=== PATIENT | female | born 1985 | race Caucasian/White ===

== ENCOUNTER 2020-08-17 17:44 | Outpatient (CLI) | payer OTHER, SELFPAY ==
--- NOTE | ~2020-08-17 | XR_ITS ---
EXAMINATION: XR chest 2V DATE: 08/17/2020 17:59 INDICATION: Cough. Shortness of breath. TECHNIQUE: Frontal and lateral views of the chest were obtained. COMPARISON: None. FINDINGS: The chest demonstrates clear lungs without pneumonia, pleural effusion, or pneumothorax. Th e heart size is normal. Surgical clips in the right upper quadrant are likely from cholecystectomy. IMPRESSION: 1. No acute cardiopulmonary disease. Reviewed, dictated and finalized at location A.
== END 2020-08-17 17:45 | disposition home or self-care (01) ==
LOC: ANHIMG 17:48
PROVIDERS: PCP Family Medicine; Visit Provider Nurse Practitioner Family
DX: R05 Cough (principal)
CPT/HCPCS: 71046

== ENCOUNTER 2021-11-09 11:47 | Outpatient (CLI) | payer OTHER, SELFPAY ==
[2021-11-09 12:02] LABS: Basophils Absolute Auto 0.1 K/mm3 (0.0-0.1); Basophils Percent Auto 0.7 % (0.2-1.2); Eosinophils Absolute Auto 0.1 K/mm3 (0-0.3); Eosinophils Percent Auto 0.8 % (0-4.4); Hematocrit 40.2 % (37.0-47.0); Hemoglobin 12.7 g/dL (12.0-15.0); Immature Granulocyte Absolute 0.03 K/mm3 (0.00-0.031); Immature Granulocyte Percent A 0.4 % (0-0.5); Lymphocytes Absolute Auto 1.87 K/mm3 (0.9-3.2); Lymphocytes Percent Auto 21.9 % (18.3-44.2); Mean Corpuscular HGB Conc 31.6 g/dl (32-36); Mean Corpuscular Volume 85.5 fl (80-100); Mean Platelet Volume 8.9 fl (7.4-10.4); Monocytes Absolute Auto 0.5 K/mm3 (0.1-0.6); Monocytes Percent Auto 5.5 % (2.6-8.5); Neutrophils Percent Auto 70.7 % (45.5-73.1); Platelet Count Result 319 k/mm3 (150-375); Red Cell Distribution Width 14.6 % (11.5-14.5); White Blood Count 8.5 K/mm3 (4.5-10.0)
[2021-11-09 12:18] LABS: Cholesterol 197 mg/dL (0-200); HDL Direct 41 mg/dL; Triglycerides 90 mg/dL (<150)
[2021-11-09 12:29] LABS: LDL Cholesterol Direct 121 mg/dL
[2021-11-09 12:48] LABS: Thyroid Stimulating Hormone 0.924 uIU/mL (0.465-4.680)
[2021-11-09 13:20] LABS: Free T4 Free Thyroxine 1.07 ng/mL (0.78-2.19); Vitamin D 25 Hydroxy 40.8 ng/mL
== END 2021-11-09 11:48 | disposition home or self-care (01) ==
LOC: ANHLAB 11:48
PROVIDERS: PCP Family Medicine; Referring Provider Obstetrics & Gynecology; Visit Provider Nurse Practitioner Family
DX: N85.2 Hypertrophy of uterus (principal); R53.83 Other fatigue; Z13.29 Encounter for screening for other suspected endocrine disorder; E55.9 Vitamin D deficiency, unspecified; Z13.220 Encounter for screening for lipoid disorders; Z01.818 Encounter for other preprocedural examination
CPT/HCPCS: 36415; 80061; 82306; 84439; 84443; 85025; 86850; 86900; 86901

== ENCOUNTER 2021-11-12 00:23 | Day surgery (SDC) | payer OTHER, SELFPAY ==
[2021-11-08 16:28] VITALS: BMI 42.3
--- NOTE | 2021-11-08 16:47 | PC.NURSE ---
Report to the Outpatient Waiting Room, entrance under the green pavilion located off [facility], at time 0730 on date _11/12/21. OR Time: 0930___. Time changes happen often and if your time is changed the preop area will call you the afternoon before. - You and your visitor will be asked to self-screen and do not enter if you have any COVID symptoms. - Only one visitor and NO children visitors are allowed at this time. - The patient visitor is requested to leave or wait in car when not with patient due to restrictions. - A mask is required within the hospital. Patients may have clear liquids (water, carbonated beverages, clear teas, apple juice) until 3 hours prior to surgery with a maximum of 20 ounces. - No food from midnight until time of surgery - Infants may have breast milk until 4 hours before surgery, infant formula 6 hours prior to surgery. - Children will be allowed to drink immediately following surgery. If applicable, please bring a bottle or sippy cup to assist with drinking. Juice, water, soda, and popsicles are readily available. For infants on formula, please bring formula the day of surgery. Pacifiers are allowed. Take the following medications with a SIP of water the morning of surgery: escitalopram Medications to discontinue per physician _multivitamin____ Date to take last dose_11/09/21 Please no make-up, nail italian, hairspray, perfume, deodorant, or body powder the day of surgery. No jewelry (including any body piercings) or valuables the day of surgery, leave them at home. Please take a shower or bath the night before, or the morning of, surgery with an antibacterial soap. Wear comfortable, loose fitting clothing. Children are encouraged to wear pajamas. - Jewelry must be removed prior to entering the operating room. Rings and piercings that are not removed may be cut off. - The hospital will not accept responsibility for valuables. - Please leave all valuables, including medications, at home the day of surgery. If you are going home after surgery, a licensed oil truck driver must drive you home. - NO public transportation without another adult. - We recommend that an adult stay with you for 24 hours following discharge. - We also recommend that you do not drive, make important decision, drink alcoholic beverages, or take any drugs that were not prescribed by your health care provider for at least 24 hours after your discharge time. For Pediatric surgeries, we recommend two adults accompany the child home (only one inside the building at this time). Follow any additional instructions given to you from your surgeon. If you or anyone in your household have experienced Covid symptoms in the past week, please notify your surgeon or the nurse liaison at the phone number below for possible testing. Telephone instructions given to Mandy Marin and asked if any additional questions and then verbalized understanding. Patient advised to call surgeon office or pre surgery nurse liaison [phone] if any additional questions.
--- NOTE | 2021-11-09 12:21 | PM.IMHP ---
H&P: HPI History of Present Illness Date/Time: 11/09/21 12:21 Chief Complaint: Enlarged uterus/pelvic pain/uterine fibroids/bleeding refractory to medical therapy Narrative: This is a 35-year-old multiparous patient admitted for robotic hysterectomy and bilateral salpingectomy secondary to enlarged uterus bleeding pelvic pain and discomfort. She has an ultrasound proving fibroids it is retroverted and at the mechanical issue. She understands this will make her permanently infertile. Risks and benefits of the procedure reviewed including but not exclusive of , aspiration pneumonia, bleeding, transfusion, perforation injury to bowel, bladder, ureters, or other internal organs with need for open laparotomy. She received the ACOG handout entitled hysterectomy as well as advanced the handout. She had all questions answered and asked to proceed PMFSH Past Medical History Medical History Acute pharyngitis, unspecified (10/02/18) Adult BMI 39.0-39.9 kg/sq m BMI 38.0-38.9,adult delivery delivered Dietary counseling and surveillance (10/02/18) Routine physical examination Screening for lipid disorders Uterine polyp Vitamin D deficiency Surgical History Surgical History H/O dilation and curettage History of cholecystectomy Family History Family History Father Hypertension Grandparent Cerebrovascular accident Mother Hyperlipidemia Hypoglycemia Sibling Tobacco abuse Other Diabetes mellitus Family history of malignant neoplasm of breast Family history of type 2 diabetes mellitus Social History Social History Smoking status: Never smoker Second hand tobacco smoke exposure: Yes Alcohol intake: never Substance use: never Substance use type: does not use Additional living arrangements comments: AND KIDS Additional occupation/education comments: [employer] Gender identity (if verbalized by the patient): Female Sexual Orientation (if Verbalized by the Patient): Straight or Heterosexual Spiritual care concerns: No Agree to blood products: Yes Meds Home Medications and Allergies Home Medications Medication Instructions Recorded Confirmed Type escitalopram oxalate 10 mg tablet 10 mg PO DAILY #30 tabs 10/15/21 11/08/21 Rx (Lexapro) multivit with minerals-iron 18 1 tablet PO DAILY 11/08/21 11/08/21 History mg-folic ac 400 mcg-vit K 25 mcg tablet (Adults Multivitamin) Allergies Allergy/AdvReac Type Severity Reaction Status Date / Time No Known Allergies Allergy Verified 11/09/21 09:31 Exam Const: General: cooperative, healthy appearing and comfortable Nutritional Appearance: average body habitus Orientation/consciousness: oriented to person, oriented to place and oriented to time HENMT: Head: normal to inspection Chest: Chest palpation & inspection: normal inspection of the chest Resp: Effort & Inspection: normal respiratory effort Cardio: Rate: regular rate Rhythm: regular rhythm Heart sounds: S1 normal heart sound present and S2 normal heart sound present GI: Inspection: normal to inspection : External Female Exam: normal external appearance Speculum Exam - Vagina: normal appearance of the vagina and vaginal bleeding Speculum Exam - Cervix: normal appearance of the cervix Bimanual exam- vagina & uterus: enlarged, Uterus displaced retroverted and Uterine tenderness Bimanual Exam- Adnexa, other: normal adnexae Assessment and Plan Assessment and plan (1) Enlarged uterus: Code(s): N85.2 - Hypertrophy of uterus Status: Acute (2) Pelvic pain: Code(s): R10.2 - Pelvic and perineal pain Status: Acute (3) Uterine fibroid: Code(s): D25.9 - Leiomyoma of uterus, unspecified
[2021-11-12] VITALS (10 sets, daily range): BP systolic 91–140; BP diastolic 40–85; PULSE 64–111; RESP 14–25; TEMP 36.2–37.1; O2SAT 93–100; BMI 41.1
--- NOTE | 2021-11-12 06:44 | WPDHPUPDATE1 ---
History and Physical Update Update Date/Time: 11/12/21 06:44 History and Physical has been reviewed, including an updated exam of the patient. There are NO changes in the patient's condition. Risks, benefits, and alternatives have been discussed and questions answered. Patient agrees to proceed with procedure.
[2021-11-12] MEDS: LACTATED RINGERS 1,000 ML 30 ML IV CONT ×2 (08:34→11:53)
[2021-11-12] MEDS: ACETAMINOPHEN 500 MG TABLET 1000 MG PO (08:35)
[2021-11-12] MEDS: KETOROLAC 15 MG/ML VIAL (*BKC) IV PUSH (08:36)
--- NOTE | 2021-11-12 08:54 | WPDANESEPPF ---
Anes - Initial Pre Proc Eval Procedure: Operation Date: 11/12/21 09:30 Proposed Procedures p Robotic Assisted Total Vaginal Hysterectomy with Bilateral Salpingectomy - Reji Valenzuela MD Date/Time: 11/12/21 08:54 Surgeon: Reji Valenzuela MD Pre Op Diagnosis: enlarged uterus, heavy bleeding, fibroids, pain Patient Data Age: 35 Gender: F Height: 1.57 m Weight: 102.1 kg Last Vital Signs Temp 37.1 C 11/12/21 07:50 Pulse 83 11/12/21 07:50 Resp 14 11/12/21 07:50 BP 133/80 11/12/21 07:50 Pulse Ox 99 11/12/21 07:50 O2 Del Method Room Air 11/12/21 07:50 Allergies Allergy/AdvReac Type Severity Reaction Status Date / Time No Known Allergies Allergy Verified 11/12/21 07:55 Home Medications Medication Instructions Recorded Confirmed Type escitalopram oxalate 10 mg tablet 10 mg PO DAILY #30 tabs 10/15/21 11/08/21 Rx (Lexapro) multivit with minerals-iron 18 1 tablet PO DAILY 11/08/21 11/12/21 History mg-folic ac 400 mcg-vit K 25 mcg tablet (Adults Multivitamin) hydrocodone 5 mg-acetaminophen 325 1 tablet PO Q4H PRN pain #30 tabs 11/12/21 Rx mg tablet Patient hx anesthesia problems: none Family hx anesthesia problems: none Results Review: All pre-operative results and documents have been reviewed as part of the pre-operative evaluation. [facility] Past Medical History Medical History Acute pharyngitis, unspecified (10/02/18) Adult BMI 39.0-39.9 kg/sq m BMI 38.0-38.9,adult delivery delivered Dietary counseling and surveillance (10/02/18) Routine physical examination Screening for lipid disorders Uterine polyp Vitamin D deficiency Surgical History Surgical History H/O dilation and curettage History of cholecystectomy Family History Family History Father Hypertension Grandparent Cerebrovascular accident Mother Hyperlipidemia Hypoglycemia Sibling Tobacco abuse Other Diabetes mellitus Family history of malignant neoplasm of breast Family history of type 2 diabetes mellitus Social History Social History Smoking status: Never smoker Second hand tobacco smoke exposure: Yes Alcohol intake: never Substance use: never Substance use type: does not use Living arrangements: with family Additional living arrangements comments: AND KIDS Additional occupation/education comments: [employer] Gender identity (if verbalized by the patient): Female Sexual Orientation (if Verbalized by the Patient): Straight or Heterosexual Spiritual care concerns: No Agree to blood products: Yes Anes - Eval Final PreProcedure Day of Procedure 11/12/21 08:54 Patient weight: morbidly obese Heart: regular rate and rhythm Lungs: clear to auscultation Airway: Mallampati scale class 1 Neurological: alert and oriented Last oral intake: >/= 8 hours ASA classification: III Emergent: no Anesthetic plan: proceed Anesthesia type and monitoring: general ETT and standard monitoring Results Review: All pre-operative results and documents have been reviewed as part of the pre-operative evaluation. Informed Consent: The patient's anesthetic plan and its attendant risks and benefits were discussed with the patient/family/POA. Questions were solicited and answers provided to the satisfaction of the patient/family/POA.
[2021-11-12] MEDS: ceFAZolin 2 GM/D5W 50 ML 2 GM/50 ML BAG IVPB (09:12)
--- NOTE | 2021-11-12 11:36 | P.OP_ITS ---
Procedure Note - Detailed Date of Procedure 11/12/21 Pre-op Diagnosis enlarged uterus, heavy bleeding, fibroids, pain Post-op Diagnosis Same Procedure Performed Robotic total vaginal hysterectomy and bilateral salpingectomy Surgeon Reji Valenzuela MD Anesthesia General Indications She is a 35-year-old female with enlarged uterus pelvic pain and bleeding refractory medical therapy Findings Enlarged retroverted uterus normal-appearing ovaries and tubes Description of Procedure Patient was prepped draped in the normal sterile fashion placed in dorsal lithotomy position. Under excellent general trach anesthesia weighted speculum placed posterior fornix vagina. Anterior lip of the cervix grasped with a single-tooth tenaculum and the uterus sounded to 10cm. Serial dilatation with fragmented dilators performed followed by passes the 10. ANDREINA and 3. Cold cup. A 16 Uzbek catheter was placed in bladder and bladder urine. The weighted speculum was removed and single-tooth were removed. The gloves were changed A supraumbilical incision made Veress needle passed in the abdomen. Abdomen filled with CO2 gas [id number]. The 5mm trocar advanced in the abdomen downside visualized were seen. Patient placed in Trendelenburg and left and right lateral quadrant incision made 8mm trocars were then placed in the abdomen under direct visualization assuring no injury. Right upper quadrant incision made the 8mm trocar advanced under direct visualization assuring no injury. The robot was docked. Attention was turned to the console. Uterus noted be markedly markedly retroverted the bladder was markedly adherent anteriorly to the uterus and cervix anteriorly. The left round ligament grasped, burned, cut. Anteriorly a bladder flap was formed by slowly layer by layer sharply dissecting the mack toneum and reflecting the bladder caudally until the lateral until it could be brought down across the cervix and uterus to the opposite round ligament was clamped, burned, cut. Next the fallopian tube was sharply dissected away from the ovarian complex and left attached to its uterine origin a miranda. This was completed on the opposite side with the right fallopian tube. The left utero- ovarian ligament was skeletonized clamped, burned, cut brought to the level of previously cut round ligament conserving the left ovary. Conserving the right ovary, the utero-ovarian ligament was clamped, burned, cut brought to the level of previously cut round ligament. The cardinal broad ligaments on left were serially skeletonized clamping burning cutting and bringing this down until the uterine vessels could be seen on the left. These were clamped, burned. Cardinal broad ligaments on the right were serially skeletonized clamping burning cutting and bringing these down to the uterine vessels on the right. These were individually clamped, burned, cut. Blanching the uterus was seen a colpotomy incision was made cervix uterus and tubes removed through the vagina. Vagina closed in continuous running 0V lock from lateral edge to lateral edge back to midline. Irrigation undertaken to clear and the raw area sprinkled with the [place] term. Robot was undocked. The gas removed from the abdomen. The trocars removed and the incisions closed with 4 Monocryl glue. The instruments removed from the vagina the patient went to recovery in satisfactory condition. All sponge, needle, instrument counts were correct. There were no immediate complications Estimated Blood Loss 25 Drains No Packing No Pathology Yes Complications No immediate complications Condition Stable Disposition PACU
[2021-11-12] MEDS: fentaNYL CITRATE INJ (*CRX) 100 MCG/2 ML VIAL 25 MCG IV PUSH ×2 (12:35→12:42)
--- NOTE | 2021-11-12 13:12 | PC.NURSE ---
This patient, Mandy Marin, was received from PACU on 11/12/21 at 1312. Patient/family oriented to unit policies and routines
[2021-11-12] MEDS: DEXTROSE 5%/LACTATED RINGERS 1,000 ML 125 ML IV CONT (14:02)
[2021-11-12] MEDS: KETOROLAC 30 MG/ML VIAL (*BKC) IV PUSH (14:05)
[2021-11-12] MEDS: BENZOCAINE/MENTHOL (*BKC) 18 EA LOZENGE 1 LOZENGE PO (18:49)
[2021-11-12] MEDS: IBUPROFEN 600 MG TABLET PO (23:32)
[2021-11-12] MEDS: HYDROcodone/acetaminophen (*CRX) 5-325 MG TABLET 1 TAB PO (23:32)
[2021-11-12] MEDS: SIMETHICONE 80 MG TAB.CHEW PO (23:33)
[2021-11-13] VITALS: BP 138/72; PULSE 108; RESP 18; TEMP 37.2; O2SAT 96
[2021-11-13 04:05] VITALS: BP 122/64; PULSE 97; RESP 18; TEMP 36.9; O2SAT 98
[2021-11-13 05:17] LABS: Basophils Percent Auto 0.3 % (0.2-1.2); Hematocrit 34.7 % (37.0-47.0); Immature Granulocyte Absolute 0.08 K/mm3 (0.00-0.031); Immature Granulocyte Percent A 0.5 % (0-0.5); Lymphocytes Absolute Auto 1.77 K/mm3 (0.9-3.2); Lymphocytes Percent Auto 11.6 % (18.3-44.2); Mean Corpuscular HGB Conc 31.7 g/dl (32-36); Mean Corpuscular Hemoglobin 26.9 pg (26-34); Mean Corpuscular Volume 84.8 fl (80-100); Mean Platelet Volume 9.4 fl (7.4-10.4); Monocytes Percent Auto 6.4 % (2.6-8.5); Neutrophils Absolute Auto 12.4 K/mm3 (1.3-6.7); Neutrophils Percent Auto 81.2 % (45.5-73.1); Platelet Count Result 330 k/mm3 (150-375); Red Blood Count 4.09 M/mm3 (4.2-5.4); White Blood Count 15.3 K/mm3 (4.5-10.0)
--- NOTE | 2021-11-13 06:40 | P.DS_ITS ---
DS: Admitting Diagnosis Discharge Date 09/12/2021 Admitting Diagnosis enlarged uterus, vaginal bleeding refractory to Medical therapy DS: Discharge Diagnosis Discharge Diagnosis (1) Vaginal bleeding: Code(s): N93.9 - Abnormal uterine and vaginal bleeding, unspecified Status: Acute (2) Pelvic pain: Code(s): R10.2 - Pelvic and perineal pain Status: Acute (3) Uterine fibroid: Code(s): D25.9 - Leiomyoma of uterus, unspecified Status: Acute (4) Enlarged uterus: Code(s): N85.2 - Hypertrophy of uterus Status: Acute DS: Summary Hospital Course Reason for hospitalization: patient was admitted for robotic hysterectomy and bilateral salpingectomy Hospital Course: the patient underwent robotic total vaginal hysterectomy and bilateral salpingectomy on 09/11/2021. Her hospital course unremarkable. She remained afebrile. She was up, voiding without difficulty, ambulating generally without complaints. Time Spent with Patient Time attestation: Total time spent providing and/or coordinating discharge services: Exam Const: General: cooperative, healthy appearing and comfortable Nutritional Appearance: average body habitus Resp: Effort & Inspection: normal respiratory effort GI: Inspection: normal to inspection and scar ( Wounds clean dry and intact) Auscultation: normal bowel sounds DS: Data Data Completed and Pending Pending studies at discharge: Pending at discharge 11/12/21 10:24 Surgical [PTH] Routine Labs on day of discharge: Labs from last 24 hours 11/13/21 03:58 WBC 15.3 H RBC 4.09 L Hgb 11.0 L Hct 34.7 L MCV 84.8 MCH 26.9 MCHC 31.7 L RDW 15.0 H Plt Count 330 MPV 9.4 Immature Gran % (Auto) 0.5 Neut % (Auto) 81.2 H Lymph % (Auto) 11.6 L [place] % (Auto) 6.4 Eos % (Auto) 0.0 Baso % (Auto) 0.3 Lymph # (Auto) 1.77 [place] # (Auto) 1.0 H Eos # (Auto) 0.0 Baso # (Auto) 0.0 Abs Immat Gran (auto) 0.08 H Absolute Neuts (auto) 12.4 H Absolute Nucleated RBC 0.0 Nucleated RBC % 0.0 Discharge Plan Discharge Patient Disposition: Home, Self-Care Stand Alone Forms: General Discharge Instructions Follow-up/Referrals: Reji Healy MD [Physician] - Discharge Medications: New hydrocodone-acetaminophen 5-325 mg tablet 1 tablet PO Q4H PRN (Reason: pain) Qty: 30 0RF Continued Adults Multivitamin 18 mg iron-400 mcg-25 mcg Tablet 1 tablet PO DAILY escitalopram oxalate [Lexapro] 10 mg tablet 10 mg PO DAILY Qty: 30 0RF
--- NOTE | 2021-11-13 06:43 | PM.GYNPNOP ---
LOAN UNDERWRITER - A/P Postoperative Procedures: Procedures Operation Date: 11/12/21 09:30 Actual Procedure Side Surgeon p Robotic Assisted Total Vaginal Hysterectomy with Bilateral Salpingectomy Bilateral Reji Valenzuela MD Postoperative day: 1 Postoperative status: doing well Postoperative plan: routine post-op care, advance diet and discharge Time Spent With Patient Time: Total time spent is greater than 50% in coordination of care (as documented) at patient's floor/unit and/or counseling patient: Time with patient: less than 15 minutes LOAN UNDERWRITER- PN:Subj Post-Op Subjective Date/time seen: 11/13/21 06:43 Subjective: patient reports feeling better LOAN UNDERWRITER - PN: Obj Data Vital Signs Vital Signs: Vital Signs - 24 hr 11/12/21 07:50 11/12/21 11:53 11/12/21 12:05 Temperature 98.8 F 97.6 F Pulse Rate 83 94 71 Respiratory Rate 14 20 25 H Blood Pressure 133/80 91/40 L 113/80 Pulse Oximetry 99 100 100 Oxygen Delivery Room Air Simple Face Mask Simple Face Mask Oxygen Flow Rate 8 8 11/12/21 12:20 11/12/21 12:35 11/12/21 12:50 Temperature Pulse Rate 91 67 69 Respiratory Rate 20 20 14 Blood Pressure 117/85 113/66 109/63 Pulse Oximetry 100 96 93 Oxygen Delivery Room Air Nasal Cannula Nasal Cannula Oxygen Flow Rate 2 2 11/12/21 13:00 11/12/21 13:15 11/12/21 16:30 Temperature 97.1 F L 98.4 F Pulse Rate 64 80 99 Respiratory Rate 16 18 18 Blood Pressure 109/64 127/63 140/76 Pulse Oximetry 97 100 100 Oxygen Delivery Nasal Cannula Oxygen Flow Rate 2 11/12/21 19:45 11/12/21 19:45 11/13/21 00:00 Temperature 98.4 F 99 F Pulse Rate 111 H 111 H 108 H Respiratory Rate 18 18 18 Blood Pressure 136/71 138/72 Pulse Oximetry 98 98 96 Oxygen Delivery Room Air Oxygen Flow Rate 11/13/21 04:05 11/13/21 04:05 Temperature 98.5 F Pulse Rate 97 97 Respiratory Rate 18 18 Blood Pressure 122/64 Pulse Oximetry 98 98 Oxygen Delivery Room Air Oxygen Flow Rate Intake/Output Intake/Output: Intake & Output 11/10/21 11/11/21 11/12/21 11/13/21 23:59 23:59 23:59 23:59 Intake Total 580 1800 Output Total 710 2800 Balance -130 -1000 Meds/Results Medications: Active Medications Generic Name Dose Route Start Last Admin Trade Name Freq PRN Reason Stop Dose Admin Hydrocodone Bitart/Acetaminophen 1 tab 11/12/21 13:02 11/12/21 23:32 Hydrocodone/Acetaminophen (*Crx) 5-325 Mg Tablet PO 1 tab Q3H PRN Administration Pain Rated 5 or Less Hydrocodone Bitart/Acetaminophen 1 tab 11/12/21 13:02 Hydrocodone/Acetaminophen (*Crx) 10-325 Mg Tablet PO Q3H PRN Pain Rated 6 or Greater Benzocaine 1 lozenge 11/12/21 17:34 11/12/21 18:49 Benzocaine/Menthol (*Bkc) 18 Ea Lozenge PO 1 lozenge PRN PRN Administration Sore Throat Docusate Sodium 100 mg 11/12/21 17:00 11/13/21 06:26 Docusate Sodium 100 Mg Capsule PO Not Given BID АЛЕКСАНДР Enoxaparin Sodium 40 mg 11/13/21 09:00 Enoxaparin 40 Mg/0.4 Ml Syringe SUB-Q DAILY АЛЕКСАНДР Dextrose/Lactated Ringer's 1,000 mls @ 125 mls/hr 11/12/21 13:02 11/13/21 06:26 Dextrose 5%/Lactated Ringers IV CONT Not Given .Q8H АЛЕКСАНДР Ibuprofen 600 mg 11/12/21 13:02 11/12/21 23:32 Ibuprofen 600 Mg Tablet PO 600 mg Q6H PRN Administration Cramping Ketorolac Tromethamine 30 mg 11/12/21 13:02 11/12/21 14:05 Ketorolac 30 Mg/Ml Vial (*Bkc) IV PUSH 11/17/21 13:01 30 mg Q6H PRN Administration Pain Rated 4-6 Naloxone HCl 0.1 mg 11/12/21 13:02 Naloxone Hcl 0.4 Mg/Ml Vial IV PUSH Q2M PRN Respiratory rate less than 10 Ondansetron HCl 4 mg 11/12/21 13:02 Ondansetron Inj 4 Mg/2 Ml Vial IV PUSH Q6H PRN Nausea And Vomiting Simethicone 80 mg 11/12/21 13:02 11/12/21 23:33 Simethicone 80 Mg Tab.Chew PO 80 mg Q2H PRN Administration Gas Labs CBC & Chem 7: 11/13/21 03:58 Labs: Laboratory Results - last 24 hr 11/13/21 03:58 WB
[2021-11-13 07:15] VITALS: BP 117/70; PULSE 72; RESP 16; TEMP 36.8; O2SAT 98
--- NOTE | 2021-11-13 07:46 | P.PNAN_ITS ---
Anes - Prog Note Post-Op Date/Time: 11/13/21 07:46 Cardiovascular status: normal Respiratory status: normal Airway patency: baseline Mental status: baseline Post-Op hydration status: normal Vital Signs: Last Vital Signs Temp 36.9 C 11/13/21 04:05 Pulse 97 11/13/21 04:05 Resp 18 11/13/21 04:05 BP 122/64 11/13/21 04:05 Pulse Ox 98 11/13/21 04:05 O2 Del Method Room Air 11/13/21 04:05 O2 Flow Rate 2 11/12/21 13:00 Pain Score (VAS): 04/08 I/O: Intake & Output 11/12/21 11/12/21 11/13/21 15:59 23:59 07:59 Intake Total 369 317 5525 Output Total 60 650 2800 Balance 40 -170 -1000 Laboratory Tests 11/13/21 03:58 11/13/21 03:58 WBC 15.3 H RBC 4.09 L Hgb 11.0 L Hct 34.7 L MCV 84.8 MCH 26.9 MCHC 31.7 L RDW 15.0 H Plt Count 330 MPV 9.4 Immature Gran % (Auto) 0.5 Neut % (Auto) 81.2 H Lymph % (Auto) 11.6 L [place] % (Auto) 6.4 Eos % (Auto) 0.0 Baso % (Auto) 0.3 Lymph # (Auto) 1.77 [place] # (Auto) 1.0 H Eos # (Auto) 0.0 Baso # (Auto) 0.0 Abs Immat Gran (auto) 0.08 H Absolute Neuts (auto) 12.4 H Absolute Nucleated RBC 0.0 Nucleated RBC % 0.0 Post-procedural complaints: none Patient Feedback: Patient satisfied with anesthetic care.
[2021-11-13] MEDS: DOCUSATE SODIUM 100 MG CAPSULE PO (08:52)
[2021-11-13] MEDS: ENOXAPARIN 40 MG/0.4 ML SYRINGE SUB-Q (08:53)
[2021-11-13] MEDS: SIMETHICONE 80 MG TAB.CHEW PO (10:57)
[2021-11-13] MEDS: IBUPROFEN 600 MG TABLET PO (10:57)
== END 2021-11-13 11:30 | disposition home or self-care (01) ==
LOC: ANHSURGERY 07:40 → ANHOB2 13:08
PROVIDERS: PCP Family Medicine; Visit Provider Obstetrics & Gynecology
PROC: (CPT 58552; principal; 2021-11-12 09:30)
DX: N93.9 Abnormal uterine and vaginal bleeding, unspecified (principal); D25.9 Leiomyoma of uterus, unspecified; N83.8 Other noninflammatory disorders of ovary, fallopian tube and broad ligament; R10.2 Pelvic and perineal pain; E55.9 Vitamin D deficiency, unspecified; E66.01 Morbid (severe) obesity due to excess calories; Z68.41 Body mass index [BMI] 40.0-44.9, adult
CPT/HCPCS: 58552; S2900; 36415; 80061; 82306; 84439; 84443; 85025; 86850; 86900; 86901; 88307; 99199; A9270; J0690; J1100; J1650; J1885; J2250; J2370; J2405; J2704; J2710; J3010; J7030; J7120; J7121

== ENCOUNTER 2023-10-04 07:18 | Outpatient (CLI) | payer OTHER, SELFPAY ==
[2023-10-04 07:45] LABS: Basophils Percent Auto 0.5 % (0.2-1.2); Eosinophils Absolute Auto 0.2 K/mm3 (0-0.3); Eosinophils Percent Auto 2.1 % (0-4.4); Hematocrit 40.5 % (37.0-47.0); Hemoglobin 12.8 g/dL (12.0-15.0); Immature Granulocyte Absolute 0.03 K/mm3 (0.00-0.031); Immature Granulocyte Percent A 0.3 % (0-0.5); Lymphocytes Absolute Auto 2.69 K/mm3 (0.9-3.2); Lymphocytes Percent Auto 30.9 % (18.3-44.2); Mean Corpuscular HGB Conc 31.6 g/dl (32-36); Mean Corpuscular Hemoglobin 27.9 pg (26-34); Mean Corpuscular Volume 88.4 fl (80-100); Mean Platelet Volume 9.5 fl (7.4-10.4); Monocytes Absolute Auto 0.6 K/mm3 (0.1-0.6); Monocytes Percent Auto 6.3 % (2.6-8.5); Neutrophils Absolute Auto 5.2 K/mm3 (1.3-6.7); Neutrophils Percent Auto 59.9 % (45.5-73.1); Platelet Count Result 327 k/mm3 (150-375); Red Blood Count 4.58 M/mm3 (4.2-5.4); Red Cell Distribution Width 14.4 % (11.5-14.5); White Blood Count 8.7 K/mm3 (4.5-10.0)
[2023-10-04 07:51] LABS: Alanine Aminotransferase 20 U/L (6-35); Albumin Level 4.3 g/dL (3.5-5.1); Alkaline Phosphatase 77 U/L (38-126); Anion Gap 8 mmol/L (4-12); Aspartate Amino Transferase 23 U/L (14-36); Bilirubin,Total 0.3 mg/dL (0.2-1.3); Blood Urea Nitrogen 19 mg/dL (7-17); Carbon Dioxide 27 mmol/L (22-30); Chloride 104 mmol/L (98-107); Cholesterol 178 mg/dL (0-200); Estimated Glomerular Filt Rate > 60; Glucose 91 mg/dL (65-110); HDL Direct 39 mg/dL; Sodium 139 mmol/L (137-145); Triglycerides 110 mg/dL (<150)
[2023-10-04 08:02] LABS: LDL Cholesterol Direct 115 mg/dL
[2023-10-04 11:40] LABS: Vitamin D 25 Hydroxy 42.7 ng/mL
== END 2023-10-04 07:19 | disposition home or self-care (01) ==
LOC: ANHLAB 07:20
PROVIDERS: PCP Family Medicine; Visit Provider Physician Assistant Medical
DX: R53.83 Other fatigue (principal); E55.9 Vitamin D deficiency, unspecified; Z13.220 Encounter for screening for lipoid disorders; Z13.29 Encounter for screening for other suspected endocrine disorder; E78.5 Hyperlipidemia, unspecified
CPT/HCPCS: 36415; 80053; 80061; 82306; 84443; 85025

== ENCOUNTER 2023-11-28 09:18 | Outpatient (CLI) | payer OTHER, SELFPAY ==
[2023-11-28 10:10] LABS: Anion Gap 8 mmol/L (4-12); Blood Urea Nitrogen 14 mg/dL (7-17); Calcium 9.1 mg/dL (8.4-10.2); Carbon Dioxide 27 mmol/L (22-30); Chloride 104 mmol/L (98-107); Estimated Glomerular Filt Rate > 60; Glucose 101 mg/dL (65-110); Sodium 139 mmol/L (137-145)
== END 2023-11-28 09:19 | disposition home or self-care (01) ==
PROVIDERS: PCP Family Medicine; Visit Provider Physician Assistant Medical
DX: N28.9 Disorder of kidney and ureter, unspecified (principal)
CPT/HCPCS: 36415; 80048